=== PATIENT | male | born 1960 | race Caucasian/White ===

== ENCOUNTER 2016-07-16 14:23 | Inpatient (IN) | payer BC ==
[2016-07-16] VITALS (9 sets, daily range): BP systolic 101–148; RESP 20–22; TEMP 98.9–101.8; Ht 185.4 cm; Wt 164.8 kg
[~2016-07-16] VITALS: Ht 185.4 cm; Wt 164.8 kg
[2016-07-16] MEDS ORDERED: ALU/MAG/SIM 30 ML UDC PO PRN (15:50)
[2016-07-16] MEDS ORDERED: MAG HYDROX 30 ML UDC PO PRN (15:50)
[2016-07-16] MEDS ORDERED: ONDANSETRON 4 MG VIAL IV PRN (15:50)
[2016-07-16] MEDS: GABAPENTIN 400 MG CAP PO SCH ×2 (16:51→20:41)
[2016-07-16] MEDS: CEFTRIAXONE 1 GM in SODIUM CHLORIDE 0.9% 50 ML IV SCH (17:31)
[2016-07-16] MEDS: AZITHROMYCIN 500 MG in SODIUM CHLORIDE 0.9% 250 ML IV SCH (18:23)
[2016-07-16] MEDS: ACETAMINOPHEN 325 MG TAB PO PRN ×2 (18:28→23:29)
[2016-07-16] MEDS: Minoxidil 2.5 MG TAB PO SCH (20:41)
[2016-07-16] MEDS: CYCLOSPORINE 100 MG CAP PO SCH (20:41)
[2016-07-16] MEDS: ATENOLOL 50 MG TAB PO SCH (20:41)
[2016-07-16] MEDS: DIPYRIDAMOLE 25 MG TAB PO SCH (20:41)
[2016-07-16] MEDS ORDERED: ACETAMINOPHEN 325 MG TAB PO PRN (21:25)
[2016-07-17] VITALS (15 sets, daily range): BP systolic 77–106; RESP 20–24; TEMP 97.3–102
[2016-07-17] MEDS: ACETAMINOPHEN 325 MG TAB PO PRN ×2 (03:43→07:52)
[2016-07-17] MEDS: SODIUM CHLORIDE 0.9% FLUSH BAG 500 ML IV PRN (05:44)
[2016-07-17] MEDS ORDERED: Furosemide 40 MG TAB PO SCH (09:00)
[2016-07-17] MEDS: Minoxidil 2.5 MG TAB PO SCH ×2 (09:00→21:08)
[2016-07-17] MEDS: DIPYRIDAMOLE 25 MG TAB PO SCH ×2 (09:39→21:08)
[2016-07-17] MEDS: PREDNISONE 10 MG TAB PO SCH (09:39)
[2016-07-17] MEDS: CYCLOSPORINE 100 MG CAP PO SCH ×2 (09:39→21:09)
[2016-07-17] MEDS: Aspirin 325 MG TAB PO SCH (09:39)
[2016-07-17] MEDS: MELOXICAM 7.5 MG TAB PO SCH (09:39)
[2016-07-17] MEDS: GABAPENTIN 400 MG CAP PO SCH ×3 (09:39→21:08)
[2016-07-17] MEDS: TAMSULOSIN 0.4 MG CAP PO SCH (09:39)
[2016-07-17] MEDS: CEFTRIAXONE 1 GM in SODIUM CHLORIDE 0.9% 50 ML IV SCH (09:39)
[2016-07-17] MEDS: ALLOPURINOL 100 MG TAB PO SCH (09:40)
[2016-07-17] MEDS: AZITHROMYCIN 500 MG in SODIUM CHLORIDE 0.9% 250 ML IV SCH (11:23)
[2016-07-17] MEDS ORDERED: PHARMACY TO DOSE XX SCH (11:55)
[2016-07-17] MEDS ORDERED: PHARMACY TO DOSE VANCOMYCIN IV SCH (11:55)
[2016-07-17] MEDS: ATENOLOL 50 MG TAB PO SCH ×2 (12:09→21:00)
[2016-07-17] MEDS: DEXTROSE 5% SALINE 0.45% 1,000 ML IV SCH (12:09)
[2016-07-17] MEDS ORDERED: VANCOMYCIN 2,500 MG in SODIUM CHLORIDE 0.9% 500 ML IV ONE (12:50)
[2016-07-17] MEDS ORDERED: MISSING DOSE XX ONE (16:30)
[2016-07-18 03:24] VITALS: BP_SYST 146; TEMP 97.7
[2016-07-18 07:23] VITALS: BP_SYST 111; RESP 15; TEMP 98.6
[2016-07-18] MEDS: CEFTRIAXONE 1 GM in SODIUM CHLORIDE 0.9% 50 ML IV SCH (08:45)
[2016-07-18] MEDS: ALLOPURINOL 100 MG TAB PO SCH (08:46)
[2016-07-18] MEDS: DEXTROSE 5% SALINE 0.45% 1,000 ML IV SCH (08:46)
[2016-07-18] MEDS: CYCLOSPORINE 100 MG CAP PO SCH ×2 (08:46→21:34)
[2016-07-18] MEDS: MELOXICAM 7.5 MG TAB PO SCH (08:46)
[2016-07-18] MEDS: Aspirin 325 MG TAB PO SCH (08:46)
[2016-07-18] MEDS: PREDNISONE 10 MG TAB PO SCH (08:46)
[2016-07-18] MEDS: DIPYRIDAMOLE 25 MG TAB PO SCH ×2 (08:46→21:34)
[2016-07-18] MEDS: GABAPENTIN 400 MG CAP PO SCH ×3 (08:47→21:34)
[2016-07-18] MEDS: TAMSULOSIN 0.4 MG CAP PO SCH (08:47)
[2016-07-18] MEDS: Minoxidil 2.5 MG TAB PO SCH ×2 (09:00→21:34)
[2016-07-18] MEDS: ATENOLOL 50 MG TAB PO SCH ×2 (09:00→21:00)
[2016-07-18] MEDS: AZITHROMYCIN 500 MG in SODIUM CHLORIDE 0.9% 250 ML IV SCH (10:24)
[2016-07-18 11:53] VITALS: BP_SYST 100; RESP 15; TEMP 98.2
[2016-07-18] MEDS ORDERED: VANCOMYCIN 2,000 MG in SODIUM CHLORIDE 0.9% 500 ML IV SCH (13:00)
[2016-07-18] MEDS ORDERED: Meropenem 500 MG in SODIUM CHLORIDE 0.9% 100 ML IV SCH ×2 (13:00→19:40)
[2016-07-18 15:15] VITALS: BP_SYST 129; RESP 16; TEMP 97.4
[2016-07-18 19:18] VITALS: BP_SYST 99; RESP 20; TEMP 97.8
[2016-07-18] MEDS: ACETAMINOPHEN 325 MG TAB PO PRN (21:37)
[2016-07-18 22:40] VITALS: BP_SYST 108; RESP 18; TEMP 98.1
[2016-07-19] MEDS: DEXTROSE 5% SALINE 0.45% 1,000 ML IV SCH ×2 (00:21→20:35)
[2016-07-19] MEDS: SODIUM CHLORIDE 0.9% FLUSH BAG 500 ML IV PRN (00:45)
[2016-07-19] MEDS: Meropenem 500 MG in SODIUM CHLORIDE 0.9% 100 ML IV SCH ×2 (00:54→11:35)
[2016-07-19 03:21] VITALS: BP_SYST 138; RESP 18; TEMP 97.8
[2016-07-19] MEDS: ACETAMINOPHEN 325 MG TAB PO PRN ×3 (05:05→20:29)
[2016-07-19] MEDS: GABAPENTIN 400 MG CAP PO SCH ×3 (07:39→20:29)
[2016-07-19] MEDS: ALLOPURINOL 100 MG TAB PO SCH (07:39)
[2016-07-19] MEDS: CYCLOSPORINE 100 MG CAP PO SCH ×2 (07:40→20:30)
[2016-07-19] MEDS: PREDNISONE 10 MG TAB PO SCH (07:40)
[2016-07-19] MEDS: DIPYRIDAMOLE 25 MG TAB PO SCH ×2 (07:40→20:29)
[2016-07-19] MEDS: TAMSULOSIN 0.4 MG CAP PO SCH (07:40)
[2016-07-19] MEDS: Minoxidil 2.5 MG TAB PO SCH ×2 (07:40→20:30)
[2016-07-19] MEDS: Aspirin 325 MG TAB PO SCH (07:40)
[2016-07-19 08:13] VITALS: BP_SYST 145; RESP 15; TEMP 98.2
[2016-07-19 12:09] VITALS: BP_SYST 119; RESP 15; TEMP 98.1
[2016-07-19] MEDS ORDERED: KETOROLAC 15 MG/ML VIAL IV PRN (13:40)
[2016-07-19] MEDS: ACETAMIN/BUTALB/CAFF PO PRN ×3 (13:59→22:23)
[2016-07-19] MEDS: ATENOLOL 50 MG TAB PO SCH (20:30)
[2016-07-19 20:57] VITALS: BP_SYST 139; RESP 24; TEMP 97.4
[2016-07-19 22:51] VITALS: BP_SYST 150; RESP 20; TEMP 97.7
[2016-07-20] MEDS: Meropenem 500 MG in SODIUM CHLORIDE 0.9% 100 ML IV SCH ×2 (01:21→12:12)
[2016-07-20] MEDS: SODIUM CHLORIDE 0.9% FLUSH BAG 500 ML IV PRN (01:22)
[2016-07-20 03:37] VITALS: BP_SYST 124; RESP 20; TEMP 97.5
[2016-07-20 07:46] VITALS: BP_SYST 120; RESP 15; TEMP 98.5
[2016-07-20] MEDS: ALLOPURINOL 100 MG TAB PO SCH (07:56)
[2016-07-20] MEDS: GABAPENTIN 400 MG CAP PO SCH ×3 (07:56→21:21)
[2016-07-20] MEDS: TAMSULOSIN 0.4 MG CAP PO SCH (07:56)
[2016-07-20] MEDS: DIPYRIDAMOLE 25 MG TAB PO SCH ×2 (07:56→21:22)
[2016-07-20] MEDS: PREDNISONE 10 MG TAB PO SCH (07:56)
[2016-07-20] MEDS: CYCLOSPORINE 100 MG CAP PO SCH ×2 (07:56→21:21)
[2016-07-20] MEDS: Aspirin 325 MG TAB PO SCH (07:56)
[2016-07-20] MEDS: Minoxidil 2.5 MG TAB PO SCH ×2 (07:56→21:21)
[2016-07-20] MEDS: ATENOLOL 50 MG TAB PO SCH ×2 (07:57→21:21)
[2016-07-20] MEDS: ACETAMIN/BUTALB/CAFF PO PRN ×2 (09:33→15:32)
[2016-07-20 11:10] VITALS: BP_SYST 130; RESP 16; TEMP 97.8
[2016-07-20] MEDS ORDERED: Furosemide 40 MG/4 ML VIAL IV ONE (12:45)
[2016-07-20] MEDS ORDERED: DEXTROSE 5% SALINE 0.45% 1,000 ML IV SCH (12:45)
[2016-07-20 15:23] VITALS: BP_SYST 122; RESP 16; TEMP 98.5
[2016-07-20 19:22] VITALS: BP_SYST 140; RESP 18; TEMP 97.6
[2016-07-20] MEDS ORDERED: SODIUM CHLORIDE 0.9% 1,000 ML IV SCH (23:25)
[2016-07-20 23:37] VITALS: BP_SYST 98; RESP 18; TEMP 97.6
[2016-07-21] MEDS: ZOLPIDEM 5 MG TAB PO PRN (00:31)
[2016-07-21 07:38] VITALS: BP_SYST 141; RESP 16; TEMP 98.3
[2016-07-21] MEDS: Minoxidil 2.5 MG TAB PO SCH ×2 (08:58→20:41)
[2016-07-21] MEDS: GABAPENTIN 400 MG CAP PO SCH ×3 (08:58→20:40)
[2016-07-21] MEDS: ALLOPURINOL 100 MG TAB PO SCH (08:58)
[2016-07-21] MEDS: TAMSULOSIN 0.4 MG CAP PO SCH (08:58)
[2016-07-21] MEDS: ATENOLOL 50 MG TAB PO SCH ×2 (08:58→20:40)
[2016-07-21] MEDS: CYCLOSPORINE 100 MG CAP PO SCH ×2 (08:58→20:40)
[2016-07-21] MEDS: PREDNISONE 10 MG TAB PO SCH (08:59)
[2016-07-21] MEDS: DIPYRIDAMOLE 25 MG TAB PO SCH ×2 (08:59→20:41)
[2016-07-21] MEDS: Aspirin 325 MG TAB PO SCH (08:59)
[2016-07-21 11:42] VITALS: BP_SYST 145; RESP 18; TEMP 97.6
[2016-07-21 14:47] VITALS: BP_SYST 161; RESP 16; TEMP 97.2
[2016-07-21 19:14] VITALS: BP_SYST 131; RESP 18; TEMP 98
[2016-07-21 22:39] VITALS: BP_SYST 136; TEMP 97.7
[2016-07-21 22:40] VITALS: RESP 22
[2016-07-22 04:31] VITALS: BP_SYST 139; TEMP 97.7
[2016-07-22 04:32] VITALS: RESP 18
[2016-07-22] MEDS: Minoxidil 2.5 MG TAB PO SCH ×2 (07:32→19:42)
[2016-07-22] MEDS: ATENOLOL 50 MG TAB PO SCH ×2 (07:32→19:42)
[2016-07-22] MEDS ORDERED: Furosemide 20 MG/2 ML VIAL IV ONE (08:35)
[2016-07-22] MEDS ORDERED: MEPERIDINE 50 MG/ML ONE ×2 (09:57→10:02)
[2016-07-22] MEDS: ACETAMIN/BUTALB/CAFF PO PRN (11:35)
[2016-07-22] MEDS: GABAPENTIN 400 MG CAP PO SCH ×3 (11:35→19:43)
[2016-07-22] MEDS: Aspirin 325 MG TAB PO SCH (11:36)
[2016-07-22] MEDS: PREDNISONE 10 MG TAB PO SCH (11:36)
[2016-07-22] MEDS: TAMSULOSIN 0.4 MG CAP PO SCH (11:36)
[2016-07-22] MEDS: CYCLOSPORINE 100 MG CAP PO SCH ×2 (11:36→19:42)
[2016-07-22] MEDS: DIPYRIDAMOLE 25 MG TAB PO SCH ×2 (11:36→19:42)
[2016-07-22] MEDS: ALLOPURINOL 100 MG TAB PO SCH (11:36)
[2016-07-22 11:55] VITALS: BP_SYST 155; RESP 18; TEMP 98.2
[2016-07-22 17:01] VITALS: BP_SYST 137; RESP 16; TEMP 97.8
[2016-07-22 20:27] VITALS: BP_SYST 155; RESP 20; TEMP 98.2
[2016-07-22] MEDS: ZOLPIDEM 5 MG TAB PO PRN (23:29)
[2016-07-22 23:51] VITALS: BP_SYST 102; RESP 20; TEMP 97.9
[2016-07-23 05:06] VITALS: BP_SYST 148; RESP 20; TEMP 99
[2016-07-23 07:55] VITALS: BP_SYST 150; RESP 18; TEMP 98.1
[2016-07-23 08:51] VITALS: BP_SYST 150; RESP 18; TEMP 98.1
[2016-07-23] MEDS: PREDNISONE 10 MG TAB PO SCH (08:52)
[2016-07-23] MEDS: Minoxidil 2.5 MG TAB PO SCH (08:52)
[2016-07-23] MEDS: Aspirin 325 MG TAB PO SCH (08:53)
[2016-07-23] MEDS: TAMSULOSIN 0.4 MG CAP PO SCH (08:53)
[2016-07-23] MEDS: DIPYRIDAMOLE 25 MG TAB PO SCH (08:53)
[2016-07-23] MEDS: CYCLOSPORINE 100 MG CAP PO SCH (08:53)
[2016-07-23] MEDS: ALLOPURINOL 100 MG TAB PO SCH (08:53)
[2016-07-23] MEDS: ATENOLOL 50 MG TAB PO SCH (08:53)
[2016-07-23] MEDS: GABAPENTIN 400 MG CAP PO SCH (08:57)
== END 2016-07-23 10:18 | disposition home or self-care (01) | DRG 689 ==
LOC: ENRESERVDT → ENRESERVTM → ENPENDDIS 14:55 → 3NT 14:55 → DELPENDDIS 14:55 → 5THE 07-17 12:43 → ENPENDDIS 07-19 11:49 → OBSVTOIN 07-19 11:49
PROVIDERS: ADMIT Internal Medicine Hematology & Oncology; ATTEND Internal Medicine Hematology & Oncology
DX: N10 Acute pyelonephritis (principal); J18.9 Pneumonia, unspecified organism; Z68.42 Body mass index [BMI] 45.0-49.9, adult; I13.0 Hypertensive heart and chronic kidney disease with heart failure and stage 1 through stage 4 chronic kidney disease, or unspecified chronic kidney disease; Z94.0 Kidney transplant status; E66.01 Morbid (severe) obesity due to excess calories; I47.9 Paroxysmal tachycardia, unspecified; I48.91 Unspecified atrial fibrillation; E86.0 Dehydration; N18.9 Chronic kidney disease, unspecified; I50.9 Heart failure, unspecified; R51 Headache; D69.6 Thrombocytopenia, unspecified; D89.9 Disorder involving the immune mechanism, unspecified; Z79.82 Long term (current) use of aspirin; Z79.52 Long term (current) use of systemic steroids
CPT/HCPCS: 71010; 71020; 78452; 80048; 80053; 80202; 81001; 82553; 83605; 83735; 83880; 84132; 84484; 85025; 86738; 87040; 87077; 87088; 87186; 93005; 93017; 93306